=== PATIENT | female | born 1940 | race Caucasian/White ===

== ENCOUNTER 2021-11-03 11:03 | Emergency (ER) | payer OTHER, MEDICAID ==
[~2021-11-03] VITALS: Ht 157.5 cm; Wt 74.8 kg
[2021-11-03 11:11] VITALS: BP 154/86
[2021-11-03] MEDS ORDERED: KETOROLAC 30 MG/ML VIAL IM ONE (11:55)
--- NOTE | 2021-11-03 12:16 | NUR ---
81/F BIB SELF WITH C/O NECK PAIN S/P FALLING OFF THE TOILET 3 WEEKS AGO, STATING ONE WEEK AGO SHE HAD ANOTHER FALL WORSENING THE PAIN. REPORTS TAKING TYLENOL FOR PAIN WITH NO RELIEF. DENIES LOC FROM EITHER FALL.
[2021-11-03] MEDS ORDERED: NAPR-1704 PO (12:33)
[2021-11-03] MEDS ORDERED: CYCL-711 PO (12:33)
--- NOTE | 2021-11-03 12:59 | NUR ---
Patient discharged with v/s stable. Written and verbal after care instructions ABOUT CERVICAL SPRAIN given and explained. Patient alert, oriented and verbalized understanding of instructions. Ambulatory with steady gait. All questions addressed prior to discharge. ID band removed. Patient advised to follow up with PMD. Rx of NAPROXEN AND FLEXERIL given. Patient educated on indication of medication including possible reaction and side effects. Opportunity to ask questions provided and answered.
== END 2021-11-03 12:59 | disposition home or self-care (01) ==
LOC: MED 11:03
DX: S16.1XXA Strain of muscle, fascia and tendon at neck level, initial encounter (principal); Z79.899 Other long term (current) drug therapy; W19.XXXA Unspecified fall, initial encounter; Y93.89 Activity, other specified; Y92.89 Other specified places as the place of occurrence of the external cause; Y99.8 Other external cause status
CPT/HCPCS: 72125; 96372; 99284; J1885

== ENCOUNTER 2021-12-03 18:08 | Emergency (ER) | payer OTHER, MEDICAID ==
[~2021-12-03] VITALS: Ht 157.5 cm; Wt 75.7 kg
[~2021-12-03 18:08] MED LIST: CYCL-711 PO; NAPR-1704 PO
[2021-12-03 18:18] VITALS: BP 139/78
--- NOTE | 2021-12-03 18:28 | NUR ---
LOBBY Addendum: 12/03/21 at 1829 by [email or web address] HANDED ON URINE CUP.
--- NOTE | 2021-12-03 18:49 | NUR ---
Antonio yang in [facility] - 12/03/21 at 1851 by [email or web address] PT W/C ASSISTED TO ER BED 3
--- NOTE | 2021-12-03 18:49 | NUR ---
PT W/C ASSISTED TO ER BED 2
--- NOTE | 2021-12-03 18:59 | NUR ---
81/F BIB SELF WITH C/O NECK, BACK PAIN AND HAND NUMBNESS X3 WEEKS. PATIENT STATES SHE HAD TWO FALLS OVER A MONTH AGO AND WAS SEEN HERE FOR NECK PAIN, STATING SHE RECEIVED A NEGATIVE CT SCAN. PATIENT STATES THE PAIN CAME BACK, WORSENING THE PAST WEEK, DENIES NEW INJURY OR TRAUMA. REPORTS TAKING TYLENOL WITH NO RELIEF.
--- NOTE | 2021-12-03 19:21 | NUR ---
Pt report given to ZACH GRADY. Transfer of care at this time.
--- NOTE | 2021-12-03 19:37 | NUR ---
RECEIVED PT AWAKE, ALERT, ORIENTED X4. AMBULATES W/ PERSONAL PAIN. STILL EXPERIENCE BILATERAL HAND NUMBNESS, NECK AND BACK PAIN.
[2021-12-03] MEDS ORDERED: GABA100C PO (19:41)
[2021-12-03] MEDS ORDERED: [UNRECOGNIZED DRUG - CODE] (19:41)
[2021-12-03] MEDS ORDERED: KETOROLAC 30 MG/ML VIAL IM ONE (19:45)
--- NOTE | 2021-12-03 20:20 | NUR ---
PT WENT TO CT VIA WHEELCHAIR
[2021-12-03] MEDS ORDERED: LID5T TP (21:56)
[2021-12-03 22:36] VITALS: BP 130/65
--- NOTE | 2021-12-03 22:37 | NUR ---
Patient discharged with v/s stable. Written and verbal after care instructions given and explained. Patient alert, oriented and verbalized understanding of instructions. Ambulatory WITH CANE with steady gait. All questions addressed prior to discharge. ID band removed. Patient advised to follow up with PMD. Rx of LIDOCAINE PATCH given. Patient educated on indication of medication including possible reaction and side effects. Opportunity to ask questions provided and answered.
== END 2021-12-03 22:37 | disposition home or self-care (01) ==
LOC: MED 18:08
DX: S16.1XXA Strain of muscle, fascia and tendon at neck level, initial encounter (principal); Z79.899 Other long term (current) drug therapy; X58.XXXA Exposure to other specified factors, initial encounter; Y93.89 Activity, other specified; Y92.89 Other specified places as the place of occurrence of the external cause; Y99.8 Other external cause status
CPT/HCPCS: 72125; 96372; 99284; J1885